=== PATIENT | male | born 1990 | race Two or more races ===

== ENCOUNTER 2018-07-07 06:31 | Emergency (ER) | payer OTHER ==
[~2018-07-07] VITALS: Ht 177.8 cm; Wt 75.3 kg
[2018-07-07 06:36] VITALS: Ht 177.8 cm; Wt 75.3 kg
[2018-07-07 07:09] LABS: BASOPHIL % 0.5 % (0-2); PLATELET COUNT 204 x10^3mcL (130-400); RED CELL DISTRIBUTION WIDTH 12.1 % (11.5-14.5)
[2018-07-07 07:24] LABS: CALCIUM 9.6 mg/dL (8.5-10.1); CARBON DIOXIDE 25.2 mmol/L (21-32); CHLORIDE SERUM 105 mmol/L (98-107); GFR1 > 60 mL/min; GLUCOSE SERUM 146 mg/dL (74-106); POTASSIUM SERUM 4.1 mmol/L (3.5-5.1); SODIUM SERUM 141 mmol/L (136-145)
[2018-07-07 07:26] LABS: ALBUMIN 4.4 g/dL (3.4-5.0); ALT/SGPT 45 U/L (16-63); AMYLASE 47 U/L (25-115); AST/SGOT 23 U/L (15-37); LIPASE 102 IU/L (73-393)
[2018-07-07 07:42] LABS: ALKALINE PHOSPHATASE 63 U/L (46-116); BILIRUBIN TOTAL 0.9 mg/dL (0.20-1.00); TOTAL PROTEIN, SERUM 7.8 g/dL (6.4-8.2)
[2018-07-07 09:49] LABS: microscopic required? NO
[2018-07-07 10:11] LABS: AMPHETAMINE QUAL UR NONE DETECTED (See below)
[2018-07-07 10:35] LABS: urine erythrocyte NEGATIVE (NEGATIVE)
[2018-07-07 10:40] VITALS: BP 125/72
== END 2018-07-07 11:30 | disposition home or self-care (01) ==
LOC: ED 06:31
PROVIDERS: Emergency Medicine
DX: F12.188 Cannabis abuse with other cannabis-induced disorder (principal); R11.10 Vomiting, unspecified
CPT/HCPCS: J1630; J2060; J2765; J7030